=== PATIENT | female | born 1970 ===

== ENCOUNTER → 2017-10-29 | Outpatient (CLI) | payer BC ==
--- NOTE | 2017-10-29 13:14 | RAD ---
Indication: Left-sided flank pain for 3 weeks. Axial imaging through the abdomen and pelvis was performed without contrast. No prior studies are available for comparison. The lung bases are clear apart from a calcified granuloma in the left lower lobe. The liver and gallbladder are unremarkable. The pancreas and spleen are unremarkable. No adrenal mass is detected. The right kidney is unremarkable. There is a questionable punctate nonobstructing calculus lower pole left kidney. No hydronephrosis is seen. No ureteral calculi or ureteral dilatation is seen. The aorta is nonaneurysmal. The small and large bowel loops are normal caliber. There is no ascites. No inflammatory process is seen. The uterus and bladder are unremarkable. There are some calcifications within the uterus. Bony structures demonstrate some sclerosis of the sacroiliac joints, right greater suggestive of sacroiliitis. Impression: 1. Probable tiny nonobstructing left renal calculus. No obstructing calculi are seen. 2. Findings suggestive of sacroiliitis. 3. No other significant abnormality is detected. PQRS Compliance Statement: One or more of the following individualized dose reduction techniques were utilized for this examination: 1. Automated exposure control 2. Adjustment of the mA and/or kV according to patient size 3. Use of iterative reconstruction technique
== END | disposition home or self-care (01) ==
LOC: CT 12:26
PROVIDERS: ATTEND Family Medicine
DX: J84.10 Pulmonary fibrosis, unspecified (principal); R30.9 Painful micturition, unspecified
CPT/HCPCS: 74176